=== PATIENT | male | born 1985 | race Hispanic/Latino ===

== ENCOUNTER 2019-05-01 14:22 | Emergency (ER) | payer OTHER ==
[2019-05-01] MEDS ORDERED: KETOROLAC TROMETHAMINE 60 MG/2 ML VIAL ONE (15:49)
== END 2019-05-01 16:16 | disposition home or self-care (01) ==
LOC: EDH 14:22
DX: L03.116 Cellulitis of left lower limb (principal); Z98.890 Other specified postprocedural states; Z72.0 Tobacco use
CPT/HCPCS: 73630; 96372; 99284; J1885